=== PATIENT | female | born 1970 | race Caucasian/White ===

== ENCOUNTER → 2016-08-17 08:55 | Outpatient (CLI) | payer OTHER | END | disposition home or self-care (01) | LOC: D.CT 08:55 | DX: J34.89 Other specified disorders of nose and nasal sinuses (principal) ==

== ENCOUNTER → 2017-06-15 07:33 | Outpatient (CLI) | payer OTHER | END | disposition home or self-care (01) | LOC: D.CT 07:33 | DX: R31.21 Asymptomatic microscopic hematuria (principal) ==